=== PATIENT | female | born 1970 | race Caucasian/White ===

== ENCOUNTER 2017-06-02 19:52 | Emergency (ER) | payer SELFPAY ==
[~2017-06-02] VITALS: Ht 175.3 cm; Wt 92.0 kg
[~2017-06-02 19:52] MED LIST: IBUP-1542 PO; ONDA4TAB35 PO; TRAM50TA2 PO
[2017-06-02 20:35] VITALS: Ht 175.3 cm; Wt 92.0 kg
== END 2017-06-03 01:55 | disposition left against medical advice (07) ==
LOC: FTE 19:52
DX: Z53.21 Procedure and treatment not carried out due to patient leaving prior to being seen by health care provider (principal)

== ENCOUNTER 2017-11-27 06:17 | Emergency (ER) | END 2017-11-27 09:17 | disposition home or self-care (01) ==

== ENCOUNTER 2018-12-24 22:00 | Emergency (ER) | payer SELFPAY ==
[~2018-12-24] VITALS: Ht 165.1 cm; Wt 84.4 kg
[2018-12-24 22:14] VITALS: BP 131/78; PULSE 69; RESP 26; Ht 165.1 cm; Wt 84.4 kg
== END 2018-12-25 01:26 | disposition left against medical advice (07) ==
LOC: E/R 22:00
DX: Z53.21 Procedure and treatment not carried out due to patient leaving prior to being seen by health care provider (principal)
CPT/HCPCS: 93005